=== PATIENT | male | born 1950 | race Caucasian/White ===

== ENCOUNTER 2019-06-12 02:38 | Emergency (ER) | payer MEDICARE, MEDICAID ==
[~2019-06-12] VITALS: Ht 182.9 cm; Wt 136.0 kg
[2019-06-12] MEDS ORDERED: TRANEXAMIC ACID 1,000 MG/10 ML TP NR (03:15)
[2019-06-12 03:19] LABS: HEMATOCRIT 42.1 % (42.0-52.0); HEMOGLOBIN 13.8 g/dL (14.0-18.0); MEAN CORPUSCULAR HEMOGLOBIN 29.3 pg (28.0-32.0); MEAN CORPUSCULAR VOLUME 89.2 fL (80.0-94.0); PLATELET 156 x1000/uL (130-400); RED BLOOD CELL COUNT 4.72 mill/uL (4.7-6.1); RED CELL DISTRIBUTION WIDTH 15.2 % (11.6-14.6)
[2019-06-12 03:24] LABS: CHLORIDE 107 mEq/L (98-107)
[2019-06-12 03:27] LABS: INR 1.5; PARTIAL THROMBOPLASTIN TIME 31.2 sec (23.4-31.0)
[2019-06-12 07:48] VITALS: BP 156/86
== END 2019-06-12 07:55 | disposition home or self-care (01) ==
LOC: ER 02:38
DX: R04.0 Epistaxis (principal); I10 Essential (primary) hypertension; Z79.01 Long term (current) use of anticoagulants
CPT/HCPCS: 30901; 36415; 85027; 99284

== ENCOUNTER 2020-01-07 15:09 | Inpatient (IN) | payer MEDICARE, MEDICAID ==
[2020-01-07] VITALS (10 sets, daily range): BP systolic 93–135; BP diastolic 21–84
[~2020-01-07] VITALS: Ht 182.9 cm; Wt 127.9 kg
[2020-01-07] MEDS ORDERED: ASPIRIN 325MG EC TABLET PO ONE (15:30)
[2020-01-07] MEDS ORDERED: NITROGLYCERIN 0.4MG TABLET SL SL ONE (15:30)
[2020-01-07] MEDS ORDERED: DOPAMINE 400 MG/250 ML IV ONE (15:59)
[2020-01-07] MEDS ORDERED: SODIUM CHLORIDE 0.9% 1000ML BAG (SEPSIS BOLUS) IV ONE (16:15)
[2020-01-07] MEDS ORDERED: PROPOFOL 10MG/ML 100ML 100 ML IV SCH (16:15)
[2020-01-07] MEDS ORDERED: SODIUM CHLORIDE 0.9% 1,000 ML IV ONE (16:15)
[2020-01-07] MEDS ORDERED: PROPOFOL 10MG/ML 100ML 100 ML IV ONE (16:15)
[2020-01-07] MEDS ORDERED: SUCCINYLCHOLINE CHLORIDE 200MG/10ML IV ONE (16:15)
[2020-01-07 16:35] LABS: HEMATOCRIT. 43.1 % (42.0-52.0); HEMOGLOBIN. 14.2 g/dL (14.0-18.0); MEAN CORPUSCULAR HEMOGLOBIN 28.7 pg (28.0-32.0); MEAN CORPUSCULAR VOLUME 87.1 fL (80.0-94.0); MEAN PLATELET VOLUME 11.5 fl (7.4-10.4); PLATELET 141 x1000/uL (130-400); RED BLOOD CELL COUNT 4.94 mill/uL (4.7-6.1); RED CELL DISTRIBUTION WIDTH 15.1 % (11.6-14.6)
[2020-01-07 16:38] LABS: INR 1.2; PROTHROMBIN TIME 12.5 sec (9.6-11.0)
[2020-01-07 16:39] LABS: CHLORIDE 103 mEq/L (98-107)
[2020-01-07 16:44] LABS: ETHANOL BLOOD < 10 mg/dL
[2020-01-07] MEDS ORDERED: SODIUM CHLORIDE 0.9% 1,000 ML IV SCH (16:44)
[2020-01-07] MEDS ORDERED: OCTREOTIDE 1,000 MCG in SODIUM CHLORIDE 0.9% 98 ML IV SCH ×2 (16:45→17:30)
[2020-01-07] MEDS ORDERED: ONDANSETRON HCL 4MG/2ML INJ IV PRN (16:45)
[2020-01-07 16:46] LABS: BETA HYDROXYBUTYRATE 0.1 mMol/L (0.0-0.3); LDL CHOLESTEROL 17 mg/dL (5-100)
[2020-01-07] MEDS ORDERED: HYDRALAZINE 20MG/ML VIAL IV ONE (17:00)
[2020-01-07] MEDS ORDERED: PANTOPRAZOLE 80 MG in SODIUM CHLORIDE 0.9% 100 ML IV SCH ×4 (17:30)
[2020-01-07] MEDS ORDERED: DOPAMINE 800MG PREMIX (DOUBLE) 250 ML IV SCH ×2 (17:45→18:45)
[2020-01-07 18:13] LABS: PLATELET ESTIMATE NORMAL
[2020-01-07] MEDS ORDERED: NOREPINEPHRINE 4 MG in DEXT 5% WATER 246 ML IV ONE (18:15)
[2020-01-07] MEDS ORDERED: ETOMIDATE 2MG/ML 10ML VIAL IV ONE (18:30)
[2020-01-07] MEDS ORDERED: AMIODARONE HCL 900 MG in DEXT 5% WATER 482 ML IV SCH ×4 (19:30)
[2020-01-07] MEDS ORDERED: PHENYLEPHRINE 40 MG in DEXT 5% WATER 249 ML IV PRN (19:37)
[2020-01-07] MEDS ORDERED: IPRATROPIUM/ALBUTEROL 0.5-3(2.5)MG/3ML NEB HHN SCH (20:00)
[2020-01-07] MEDS ORDERED: PIPERACILLIN/TAZOBACTAM 2.25 G in DEXTROSE 5% WATER 50 ML IV SCH (20:00)
[2020-01-07] MEDS ORDERED: AMIODARONE HCL 150 MG in DEXT 5% WATER 100 ML IV NR (20:00)
[2020-01-07 20:11] LABS: BG BASE EXCESS -17.9 mmol/L (-2.0-2.0); BG CARBOXYHEMOGLOBIN 0.2 % (0.5-1.5); BG DEOXYHEMOGLOBIN 29.3 % (0.0-5.0); BG FRACTION INSPIRED OXYGEN 100; BG METHEMOGLOBIN 0.4 % (0.0-1.5); BG OXYGEN SATURATION 70.5 % (92.0-98.5); BG OXYHEMOGLOBIN 70.1 % (94.0-97.0); BG PCO2 49.9 mmHg (35.0-45.0); BG PH 7.034 (7.350-7.450); BG PO2 51.5 mmHg (75.0-100.0); BG SAMPLE SITE RIGHT RADIAL; BG TIDAL VOLUME(mL) 550 mL; BG TOTAL HEMOGLOBIN 16.4 g/dL (12.0-18.0); BG VENT MODE VENT - A/C; BG VENT RATE 16 set
[2020-01-07] MEDS ORDERED: VANCOMYCIN 2,000 MG in DEXT 5% WATER 500 ML IV NR (20:30)
[2020-01-07] MEDS ORDERED: SODIUM BICARBONATE 100 MEQ in DEXTROSE 5% WATER 900 ML IV SCH (21:00)
[2020-01-07 21:14] LABS: HEMOGLOBIN 16.7 g/dL (14.0-18.0)
[2020-01-14 16:07] LABS: HEPATITIS B SURFACE ANTIGEN NEGATIVE
[2020-01-14 16:37] LABS: HEPATITIS A AB IGM NEGATIVE (NEGATIVE)
== END 2020-01-07 21:27 | disposition expired | DRG 208 ==
LOC: ER 15:09 → MICUNO 16:36 → EDBEDREQTM 17:23 → EDBEDREQSVC 17:23 → EDBEDREQ 17:23 → ENRESERV 17:51
PROVIDERS: ADMIT Internal Medicine; ATTEND Internal Medicine
PROC: 5A2204Z Restoration of Cardiac Rhythm, Single (ICD-10-PCS; principal; 2020-01-07)
PROC: 5A1935Z Respiratory Ventilation, Less than 24 Consecutive Hours (ICD-10-PCS; 2020-01-07)
PROC: 0BH17EZ Insertion of Endotracheal Airway into Trachea, Via Natural or Artificial Opening (ICD-10-PCS; 2020-01-07)
PROC: 30233N1 Transfusion of Nonautologous Red Blood Cells into Peripheral Vein, Percutaneous Approach (ICD-10-PCS; 2020-01-07)
DX: J96.01 Acute respiratory failure with hypoxia (principal); E87.2 Acidosis; G93.40 Encephalopathy, unspecified; R17 Unspecified jaundice; R57.9 Shock, unspecified; K92.0 Hematemesis; I48.91 Unspecified atrial fibrillation; E66.01 Morbid (severe) obesity due to excess calories; E87.6 Hypokalemia; F03.90 Unspecified dementia, unspecified severity, without behavioral disturbance, psychotic disturbance, mood disturbance, and anxiety; M19.90 Unspecified osteoarthritis, unspecified site; G47.33 Obstructive sleep apnea (adult) (pediatric); Z96.652 Presence of left artificial knee joint; Z86.73 Personal history of transient ischemic attack (TIA), and cerebral infarction without residual deficits; Z88.6 Allergy status to analgesic agent
CPT/HCPCS: 36415; 36600; 71045; 80053; 80320; 82010; 82140; 82375; 82378; 82805; 82962; 83605; 83721; 83735; 83880; 84145; 84484; 85014; 85018; 85025; 85651; 86301; 86705; 86709; 86803; 86850; 86900; 86920; 87340; 93005; 94002; 96365; 99291; C9113; J0282; J1265; J2354; J2543; J2704; J3370; J3490; J7030; J7050; J7060; J7070; P9016; G0480